=== PATIENT | female | born 1950 | race Caucasian/White ===

== ENCOUNTER 2019-07-19 09:03 | Emergency (ER) | payer MEDICARE ==
[2019-07-19 09:21] VITALS: BP 216/133
[2019-07-19] MEDS ORDERED: TETANUS,DIPH,PERTUSS(ACELL) VACCINE 0.5 ML SYRINGE IM ONE (10:36)
--- NOTE | 2019-07-19 10:43 | Emergency Department Report ---
ED Laceration HPI - HPI Chief Complaint: Extremity Injury, Upper Stated Complaint: FINGER CUT Time Seen by Provider: 07/19/19 10:31 Occurred When: Today Location: Upper Extremity Severity: mild Tetanus Status: Not up to Date Laceration Symptoms: Yes Pain, No Foreign Body Sensation, No Numbness, No Weakness Other History: This is a 69-year-old female who presents the ED complaining of left index finger laceration sustained at work around 4 AM this morning. Patient states she was moving a metal table and the metal part of the table accidentally nicked her posterior finger. Patient states that she was able to put a Band-Aid over it and stopped the bleeding. Patient states her tetanus is not up-to-date ED Review of Systems ROS: Stated complaint: FINGER CUT Other details as noted in HPI Comment: All other systems reviewed and negative ED Past Medical Hx - Past Medical History Previous Medical History?: No Hx Hypertension: Yes - Surgical History Past Surgical History?: No - Medications Home Medications: Home Medications Medication Instructions Recorded Confirmed Last Taken Type Ibuprofen [Motrin] 800 mg PO Q8HR #30 tablet 07/19/19 Unknown Rx cephALEXin [Keflex] 500 mg PO Q12HR #10 cap 07/19/19 Unknown Rx Laceration Physical Exam - Exam General: Vital signs noted. No distress. Alert and acting appropriately. Wound Length (cm): 1 Laceration Location: Upper Extremity Laceration Exam: Yes Normal Distal CMS, No Foreign Body, No Exposed Tendon, Vessel, or Nerve, No Tendon Injury ED Course Vital Signs 07/19/19 09:09 Temperature 98.5 F Pulse Rate 65 Respiratory 16 Rate Blood Pressure 216/133 O2 Sat by Pulse 97 Oximetry - Laceration /Wound Repair Left Posterior Finger Wound Location: upper extremity (Left index finger) Wound Length (cm): 1 Wound's Depth, Shape: superficial, linear Wound Explored: clean Irrigated w/ Saline (ccs): 200 Betadine Prep?: No Wound Repaired With: Steri-strips, Dermabond Number of Sutures: 0 Layer Closure?: No Sterile Dressing Applied?: Yes ED Medical Decision Making - Medical Decision Making 59-year-old female presents with finger laceration. Wound was cleaned, asked Dermabond and Steri-Strip applied to wound as wound was minimal. Patient tolerated procedure well. Patient received tetanus booster in the ED. Discussed Motrin as needed for pain. Vital signs are normal patient is in no acute distress. Discussed follow-up with primary care physician in 3 to 5 days. Critical care attestation.: If time is entered above; I have spent that time in minutes in the direct care of this critically ill patient, excluding procedure time. ED Disposition Clinical Impression: Laceration of finger of left hand Disposition: [id number] TO HOME OR SELFCARE Is pt being admited?: No Does the pt Need Aspirin: No Condition: Stable Instructions: Finger Laceration (ED), Skin Adhesive Care (ED) Additional Instructions: Make sure to follow up with the primary care physician as discussed. Take all your medications as you've been prescribed. If you have any worsening symptoms or develop new symptoms please return to ED immediately. Prescriptions: cephALEXin [Keflex] 500 mg PO Q12HR #10 cap Ibuprofen [Motrin] 800 mg PO Q8HR #30 tablet Referrals: OG PRYOR MD [Primary Care Provider] - 3-5 Days Forms: Work/School Release Form(ED) Time of Disposition: 10:47
== END 2019-07-19 10:59 | disposition home or self-care (01) ==
LOC: ED 09:03
DX: S61.211A Laceration without foreign body of left index finger without damage to nail, initial encounter (principal); W45.8XXA Other foreign body or object entering through skin, initial encounter; Y93.89 Activity, other specified; Y92.89 Other specified places as the place of occurrence of the external cause; Y99.8 Other external cause status
CPT/HCPCS: 90471; 90715; 99282